=== PATIENT | female | born 1950 | race Caucasian/White ===

== ENCOUNTER 2018-02-15 12:37 | Emergency (ER) | payer OTHER ==
[2018-02-15 13:43] LABS: HEMATOCRIT 34.1 % (37.0-47.0); HEMOGLOBIN 9.7 g/dl (12.0-16.0); IMMATURE GRANULOCYTES 0.4 % (0.0-5.0); MEAN CELL VOLUME 91.2 fL CALC (80.0-100.0); MEAN CORPUSCULAR HGB 25.9 pG CALC (26.0-32.0); MEAN CORPUSCULAR HGB CONC 28.4 g/L CALC (32.0-36.0); NEUT# 6.55 thou/uL (2.00-7.15); RED BLOOD COUNT 3.74 mill/uL (4.20-5.60); RED CELL DISTRI WIDTH 20.3 % (11.5-15.5)
[2018-02-15 14:26] LABS: ALBUMIN 3.5 g/dL (3.2-5.0); ALKALINE PHOSPHATASE 155 u/l (38-126); ANION GAP 19 (6-22 (CALC)); BILIRUBIN, TOTAL 0.8 mg/dL (0.0-1.4); BUN 9 mg/dL (8-23); BUN/CREATININE RATIO 17 (12-20 (CALC)); CARBON DIOXIDE 21 mmol/l (22-30); CHLORIDE 102 mmol/l (95-108); CREATININE 0.5 mg/dL (0.5-1.0); GFR > 60 ML/MIN (>=60 (CALC)); GFR FOR AFR.AMER. > 60 ML/MIN (>=60 (CALC)); LIPASE 17 u/l (23-300); POTASSIUM 3.7 mmol/l (3.5-5.1); SGOT/AST 18 u/l (9-36); SODIUM 138 mmol/l (137-146); TOTAL PROTEIN 6.7 g/dL (6.3-8.2)
[2018-02-15 15:58] VITALS: BP 104/71
== END 2018-02-15 16:29 | disposition short-term general hospital (02) | DRG 80 ==
LOC: ED 12:37
PROVIDERS: Family Medicine
DX: G93.6 Cerebral edema (principal); G93.5 Compression of brain; C71.9 Malignant neoplasm of brain, unspecified; R53.1 Weakness; R11.2 Nausea with vomiting, unspecified; R42 Dizziness and giddiness; C53.9 Malignant neoplasm of cervix uteri, unspecified; Z85.841 Personal history of malignant neoplasm of brain; Z98.890 Other specified postprocedural states